=== PATIENT | male | born 1995 | race Caucasian/White ===

== ENCOUNTER 2019-04-17 13:38 | Emergency (ER) | payer OTHER, SELFPAY ==
[2019-04-17 13:39] VITALS: BP 119/47; PULSE 70; RESP 18; TEMP 37.2; O2SAT 99; BMI 36.5
--- NOTE | 2019-04-17 14:01 | CT_ITS ---
STUDY: CT BRAIN WITHOUT CONTRAST REASON FOR EXAM: Male, 24 years old. RT OCCULAR PAIN, PAIN ABOVE RT EYE X 2 DAYS, EMESIS RADIATION DOSAGE (If Supplied By Facility): CTDIvol = ( 60.81 ) mGy, DLP = ( 1044.28 ) mGycm TECHNIQUE: Transaxial CT imaging of the brain was performed without administration of intravenous contrast material. Individualized dose optimization techniques were used for this CT. COMPARISON: No relevant priors. FINDINGS: Normal soft tissue structures. Normal calvarium. Normal size ventricles and extra-axial spaces for the patient''s age. Normal white matter tracts of the cerebral hemispheres. Normal basal ganglia and thalami. Normal brainstem. Normal cerebellum. There is no intracranial hemorrhage. There are no findings of an acute ischemic infarction. There is opacification of the right maxillary sinus as well as partial opacification of the right ethmoid and air-fluid level in the right frontal sinus. CT/Brain/Head without Contrast IMPRESSION: Right frontal, ethmoid and maxillary sinusitis. Electronically Signed: Jose Sun, at 14:33 EST , Service support ,
--- NOTE | 2019-04-17 14:15 | ED.DCSUM_ITS ---
History of Present Illness Chief Complaint: Other, Pain/Inj Informant: Patient, Family Onset: Days Maximum Severity: Mild Narrative: The patient complains of a pain over the right brow for the last 2 days he states that sharp and stabbing nothing triggers it nothing alleviates it except occasionally [id number] meds he has no eye pain no change in vision no headache no symptoms on the left side, HEENT general medical questions review of systems are all negative he takes his finger and pointed to one focal area over the right brow as the focus of his pain the area is not red is not swollen no trauma he has no history of any [employer] skin inflammatory or other conditions Past Medical History - Allergies and Home Meds Allergies/Adverse Reactions: Allergies amoxicillin Allergy (Verified 04/17/19 13:41) Unknown Penicillins Allergy (Verified 04/17/19 13:41) Rash venom-honey bee [bee venom (honey bee)] Allergy (Verified 04/17/19 13:41) Swelling Primary Care Physician: Care Physician,No Primary [NON-STAFF] - Past Medical History: None Smoking Status: Never smoker Review of Systems General: Denies: Chills, Fever, Sweats Eyes: Reports: - - His only complaint is pain over the right brow. Denies: Visual changes - bilaterally, Diplopia ENT: Denies: Rhinorrhea, Sore throat Cardiovascular: Denies: Chest pain, Palpitations Respiratory: Denies: Dyspnea, Cough, Dyspnea on exertion Gastrointestinal: Denies: Abdominal pain, Nausea, Vomiting, Diarrhea, Melena, Hematochezia Genitourinary: Denies: Dysuria, Hematuria, Frequency Musculoskeletal: Denies: Back pain, Extremity Pain Skin: Denies: Rash, Wounds Neurological: Denies: Headache, Weakness, Numbness Physical Exam Vital Signs/Narrative: Vital Signs Temp Pulse Resp BP Pulse Ox 04/17/19 13:39 99 F 70 18 119/47 L 99 General: Well nourished, Well developed, No Acute Distress Head: Normocephalic, Atraumatic Eyes: Perrl, EOMI, - - HEENT ocular exam are normal his vision is normal his right eye left eye normal nose and throat head neck negative he takes his finger and points directly to 1 spot over his right brow this is not over the neural neuroforamina this area is subjectively tender there is no warmth pressure fullness or acute gross abnormality of his brow or any part of his HEENT exam his neck is supple and the rest of the exam and neurologic exams are entirely negative ENT: Moist mucous membranes, No rhinorrhea Neck: Supple, Nontender Cardiovascular: Regular rate, Regular rhythm, No murmurs Respiratory: No distress, CTA bilaterally, Chest nontender Abdomen: Soft, Nontender, Nondistended, Normal bowel sounds Back: Nontender, Normal Inspection Extremities: Nontender, No edema Skin: Normal color, No rash Neurological: Alert, Oriented x3, Cranial nerves II-XII grossly intact, Normal Strength, Normal Sensation Psychological: Normal affect, Normal Mood Diagnostic/Tx/Re-eval - Medical Decision Making Is a sharp stabbing intermittent pain that began a few days ago nothing triggers it this is his only complaint no other associated symptoms his NIH is 0 his ocular exam is negative he assures me his vision is normal he has no eye pain his ears nose and throat unremarkable he denies any sinus type symptoms, given all the above pain management head CT The patient CT shows findings of frontal and other sinusitis please see that report given his allergy profile to be started on Levaquin Naprosyn Vicodin as rescue medicine Flonase and a follow-up with ENT and return for change in symptoms he understands the above and is comfortable this plan Home with stable Final impression rt frontal ethmoid and maxillary sinusitis ED Disposition - Plan for ED Patient: Diagnosis: Sinusitis Instructions: Acute Sinusitis Prescriptions: Fluticasone Propionate [Flonase Allergy Relief] 15.8 ml NS BID #1 spray.susp Prescription Printed Levofloxacin [Levaquin] 750 mg PO DAILY #14 tab Prescription Printed Naproxen [Naprosyn] 500 mg PO BID PRN #20 tab Prescription Printed Hydrocodone Bitart/Apap 5-325 [[place] 5MG-325MG] 1 tab PO Q4H PRN PRN 2 Days #10 tab PRN Reason: Pain Prescription Printed Referrals: Care Physician,No Primary [NON-STAFF] - Berto Villalba MD [STAFF PHYSICIAN] -
[2019-04-17] MEDS: HYDROcodone Bitartrate/Apap 5/325 Tablet PO (14:34)
[2019-04-17] MEDS: levoFLOXacin 750 MG Tablet PO (15:10)
== END 2019-04-17 15:16 | disposition home or self-care (01) ==
PROVIDERS: Emergency Provider Emergency Medicine; PCP Nurse Practitioner Family
DX: J01.10 Acute frontal sinusitis, unspecified (principal); J01.20 Acute ethmoidal sinusitis, unspecified; J01.00 Acute maxillary sinusitis, unspecified
CPT/HCPCS: 70450; 99283